=== PATIENT | male | born 1985 | race African-American/Black ===

== ENCOUNTER 2025-03-15 05:53 | Inpatient (IN) | payer MEDICAID ==
[~2025-03-15] VITALS: Ht 167.6 cm; Wt 74.4 kg
[2025-03-15] VITALS (11 sets, daily range): BP systolic 146; BP diastolic 90; TEMP 98.1; O2SAT 92–99
[2025-03-15] MEDS ORDERED: Magnesium 1GM/D5W 100ML PREMIX 200 ML IV ONE (06:05)
[2025-03-15] MEDS ORDERED: EPINEPHRINE (1:1000) 1 MG/ML AMPUL ONE (06:08)
[2025-03-15] MEDS: EPINEPHRINE (1:1000) 1 MG/ML AMPUL SUBCUT ONE (06:15)
[2025-03-15] MEDS ORDERED: ONDANSETRON HCL/PF 4 MG/2 ML VIAL ONE ×2 (06:17→06:57)
[2025-03-15] MEDS ORDERED: IPRATROPIUM NEB FS 0.5 MG/2.5 ML AMPUL.NEB ONE ×4 (06:19→15:47)
[2025-03-15] MEDS ORDERED: ALBUTEROL FS 2.5 MG/3 ML VIAL.NEB ONE ×4 (06:19→15:47)
[2025-03-15 06:25] LABS: PLATELET COUNT (AUTO) 307 K/uL (150-450); RED BLOOD CELL COUNT(AUTO) 5.52 MIL/uL (4.5-6.0); RED CELL DISTRIBUTION WIDTH 14.1 % (11.5-15.0); WHITE BLOOD COUNT (AUTO) 14.4 K/uL (4.3-11.0)
[2025-03-15] MEDS: ONDANSETRON HCL/PF 4 MG/2 ML VIAL IV ONE ×2 (06:26→07:00)
[2025-03-15] MEDS: Magnesium 1GM/D5W 100ML PREMIX 200 ML IV ONE (06:26)
[2025-03-15 06:35] LABS: CALCIUM, SERUM 9.5 mg/dL (8.5-10.1); CREATININE 0.9 mg/dL (0.6-1.3); SODIUM SERUM 139.0 mmol/L (136-145); UREA NITROGEN, BLOOD 11.0 mg/dL (7-18)
[2025-03-15] MEDS: IPRATROPIUM NEB FS 0.5 MG/2.5 ML AMPUL.NEB NEB ONE (06:40)
[2025-03-15] MEDS: ALBUTEROL FS 2.5 MG/3 ML VIAL.NEB NEB ONE (06:41)
[2025-03-15] MEDS ORDERED: Z GUARD REMEDY 4 OZ OINT TP PRN (08:00)
[2025-03-15] MEDS ORDERED: MAGNESIUM HYDROXIDE 30 ML UDC PO PRN (08:00)
[2025-03-15] MEDS ORDERED: ACETAMINOPHEN 325 MG TABLET PO PRN (08:00)
[2025-03-15] MEDS ORDERED: ONDANSETRON HCL/PF 4 MG/2 ML VIAL IVP PRN (08:00)
[2025-03-15 08:17] LABS: ABG BASE EXCESS -2.0 mmol/L (-2.0-3.0); ABG OXYGEN SATURATION 99.6 % (94.0-98.0); ABG PCO2 65.6 mmHg (35.0-48.0); ABG PH 7.235 (7.350-7.450); ABG PO2 569.8 mmHg (83.0-108.0); ABG TOTAL HEMOGLOBIN 15.8 G/dL (13.5-17.5); SET RATE, BG 24.0; SITE, ABG RIGHT RADIAL
[2025-03-15 11:13] LABS: ABG BASE EXCESS -3.0 mmol/L (-2.0-3.0); ABG OXYGEN SATURATION 94.8 % (94.0-98.0); ABG PCO2 52.2 mmHg (35.0-48.0); ABG PH 7.286 (7.350-7.450); ABG PO2 78.8 mmHg (83.0-108.0); ABG TOTAL HEMOGLOBIN 15.5 G/dL (13.5-17.5); FLOW, BLOOD GAS 3.00 L/min (0.00-30.00); SITE, ABG RIGHT RADIAL
[2025-03-15] MEDS: IPRATROPIUM NEB FS 0.5 MG/2.5 ML AMPUL.NEB NEB SCH (11:33)
[2025-03-15] MEDS: ALBUTEROL FS 2.5 MG/3 ML VIAL.NEB NEB SCH (11:33)
[2025-03-16] VITALS (12 sets, daily range): BP systolic 115–149; BP diastolic 69–93; TEMP 97.3–98.3; O2SAT 95–100
[2025-03-16 08:25] LABS: PLATELET COUNT (AUTO) 273 K/uL (150-450); RED BLOOD CELL COUNT(AUTO) 4.96 MIL/uL (4.5-6.0); RED CELL DISTRIBUTION WIDTH 14.0 % (11.5-15.0); WHITE BLOOD COUNT (AUTO) 24.6 K/uL (4.3-11.0)
[2025-03-16 09:06] LABS: CALCIUM, SERUM 9.0 mg/dL (8.5-10.1); CREATININE 0.8 mg/dL (0.6-1.3); PHOSPHORUS 3.0 mg/dL (2.5-4.9); SODIUM SERUM 134.0 mmol/L (136-145); UREA NITROGEN, BLOOD 18.0 mg/dL (7-18)
[2025-03-16] MEDS: PANTOPRAZOLE 40 MG TABLET.DR PO SCH (09:13)
[2025-03-17 00:11] VITALS: O2SAT 100
[2025-03-17 04:00] VITALS: BP 130/98; TEMP 97.5; O2SAT 97
[2025-03-17 07:19] VITALS: BP 138/92; TEMP 97.3; O2SAT 97
[2025-03-17 07:30] VITALS: BP 150/70; TEMP 97.3; O2SAT 95
[2025-03-17 08:27] VITALS: O2SAT 97
[2025-03-17] MEDS ORDERED: METH4TAB17 PO (08:43)
== END 2025-03-17 10:35 | disposition home or self-care (01) | DRG 141 ==
LOC: ER 06:00 → EDBD 07:56 → OBSER 07:56 → MED 17:22 → TELE 17:50
PROVIDERS: ADMIT Nurse Practitioner Family; ATTEND Nurse Practitioner Acute Care
PROC: 5A09357 Assistance with Respiratory Ventilation, Less than 24 Consecutive Hours, Continuous Positive Airway Pressure (ICD-10-PCS; principal; 2025-03-15)
DX: J45.901 Unspecified asthma with (acute) exacerbation (principal); J96.02 Acute respiratory failure with hypercapnia; J96.01 Acute respiratory failure with hypoxia; D72.829 Elevated white blood cell count, unspecified; F43.9 Reaction to severe stress, unspecified; F12.90 Cannabis use, unspecified, uncomplicated; Z20.822 Contact with and (suspected) exposure to COVID-19
CPT/HCPCS: 36415; 36600; 70220-TC; 71045-TC; 80048-TC; 82803-TC; 83735-TC; 84100-TC; 85025-TC; 87081-TC; 94760-TC; 94799-TC; G0378; J0169; J2405; J2919; J3475